=== PATIENT | male | born 1960 | race Caucasian/White ===

== ENCOUNTER → 2016-04-18 | Outpatient (CLI) | payer BC ==
[~2016-04-18] MED LIST: No Meds
--- NOTE | 2016-04-18 15:54 | DIAGNOSTIC IMAGING REPORT ---
RIGHT WRIST MIN 3 VIEWS ROUTINE CLINICAL HISTORY: Bilateral wrist pain. Hemachromatosis. COMPARISON: Right hand radiograph July 25, 2014 [place] FINDINGS: There is mild joint space narrowing of the triscaphe joint with mild joint space narrowing of the right first carpometacarpal joint and radiocarpal articulation. No fracture or suspicious lesion is identified. There is no chondrocalcinosis. No erosions are identified. IMPRESSION: 1. 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 2. No acute fracture. 3. No erosions identified. Electronically signed by: King Kent M.D. 04/18/2016 3:53 PM Dictated Date/Time: 04/18/2016 3:51 PM
--- NOTE | 2016-04-18 15:54 | DIAGNOSTIC IMAGING REPORT ---
LEFT WRIST MIN 3 VIEWS ROUTINE CLINICAL HISTORY: E83.119 [id number] Pain in both [id number] trauma. Pain. COMPARISON: None. DISCUSSION: The bones and joint spaces appear intact. There is no evidence of fracture, dislocation or bony disease. There is no evidence for soft tissue swelling. IMPRESSION: Negative study. Electronically signed by: Darshan Jones M.D. 04/18/2016 3:53 PM Dictated Date/Time: 04/18/2016 3:52 PM
== END | disposition home or self-care (01) ==
LOC: C.RAD 15:20
PROVIDERS: ATTEND Internal Medicine
DX: E83.119 Hemochromatosis, unspecified (principal); M25.531 Pain in right wrist; M25.532 Pain in left wrist

== ENCOUNTER → 2016-04-20 | Outpatient (CLI) | payer BC ==
[2016-04-24 15:37] LABS: CYCLIC CITRULLINATED PEPT IGG <16 UNITS (<20); PARVOVIRUS IgG INDEX 0.2 (<0.9); PARVOVIRUS IgM INDEX 0.2 (<0.9)
== END | disposition home or self-care (01) ==
LOC: C.LAB1850 15:45
PROVIDERS: ATTEND Internal Medicine Rheumatology
DX: E83.119 Hemochromatosis, unspecified (principal); M79.641 Pain in right hand; M25.50 Pain in unspecified joint

== ENCOUNTER → 2016-04-27 | Outpatient (CLI) | payer BC ==
--- NOTE | 2016-04-27 11:01 | DIAGNOSTIC IMAGING REPORT ---
LEFT KNEE 3 VIEWS, RIGHT KNEE 3 VIEWS CLINICAL HISTORY: E83.119 JnjduanoqnwrcwjE73.4 Inflammatory gkffbjxygcfsxT93.561 K. Bilateral knee pain. COMPARISON STUDY: None. FINDINGS: No fracture or dislocation within the right or left knee. Mild cartilage space narrowing within the medial compartment of the right knee. Suspect trace bilateral knee effusions. Soft tissues are unremarkable. Tiny osteophytes at the tibial spines and patella. Cartilage spaces within the left knee are maintained. IMPRESSION: 1. Minor arthritic change within the bilateral knees most pronounced within the medial compartment of the right knee. 2. Suspect trace bilateral knee effusions. Electronically signed by: Kavin Bush M.D. 04/27/2016 11:00 AM Dictated Date/Time: 04/27/2016 10:56 AM
--- NOTE | 2016-04-27 11:01 | DIAGNOSTIC IMAGING REPORT ---
LEFT KNEE 3 VIEWS, RIGHT KNEE 3 VIEWS CLINICAL HISTORY: E83.119 PlcphsablhqfqruY35.4 Inflammatory knbtypznipqsfD75.561 K. Bilateral knee pain. COMPARISON STUDY: None. FINDINGS: No fracture or dislocation within the right or left knee. Mild cartilage space narrowing within the medial compartment of the right knee. Suspect trace bilateral knee effusions. Soft tissues are unremarkable. Tiny osteophytes at the tibial spines and patella. Cartilage spaces within the left knee are maintained. IMPRESSION: 1. Minor arthritic change within the bilateral knees most pronounced within the medial compartment of the right knee. 2. Suspect trace bilateral knee effusions. Electronically signed by: Kavin Bush M.D. 04/27/2016 11:00 AM Dictated Date/Time: 04/27/2016 10:56 AM
--- NOTE | 2016-04-27 11:30 | DIAGNOSTIC IMAGING REPORT ---
LEFT HIP 2 VIEW CLINICAL HISTORY: Inflammatory polyarthritis. Hemochromatosis. FINDINGS: AP and frog-leg views of the left hip are obtained. No prior studies are available for comparison at the time of dictation. The skeletal structures appear well mineralized. No fracture is seen in the left hip or the imaged bony pelvis. The joint space of the hip appears preserved. No erosion is seen. Mild bony overgrowth is noted along the acetabular roof. Small enthesophytes arise from the greater trochanter. Sclerotic change is noted in the left sacroiliac joint. The overlying soft tissues are within normal limits. IMPRESSION: Minimal degenerative change as above with no acute bony abnormality identified. Electronically signed by: Alberto Chung M.D. 04/27/2016 11:29 AM Dictated Date/Time: 04/27/2016 11:27 AM
--- NOTE | 2016-04-27 11:32 | DIAGNOSTIC IMAGING REPORT ---
RIGHT HIP 2 VIEWS HISTORY: E83.119 XaptmgxydhhdbeiV48.4 Inflammatory iovssqmadbaedH99.561 K Right COMPARISON: None. FINDINGS: There is no fracture or dislocation. Soft tissues are unremarkable. Mild cartilage space narrowing with marginal osteophytes within the right hip. The visualized pelvic bones are intact. Mild thickening of the superior femoral head neck junction which can be seen in the setting of femoral acetabular impingement. IMPRESSION: 1. Mild osteoarthritis within the right hip. 2. 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 Electronically signed by: Kavin Bush M.D. 04/27/2016 11:31 AM Dictated Date/Time: 04/27/2016 11:29 AM
[2016-04-29 22:37] LABS: PARVOVIRUS IgG INDEX 0.2 (<0.9); PARVOVIRUS IgM INDEX 0.2 (<0.9)
== END | disposition home or self-care (01) ==
LOC: C.LAB1850 10:14
PROVIDERS: ATTEND Internal Medicine Rheumatology
DX: E83.119 Hemochromatosis, unspecified (principal); M06.4 Inflammatory polyarthropathy; M25.561 Pain in right knee; M25.562 Pain in left knee

== ENCOUNTER → 2016-06-29 | Outpatient (CLI) | payer BC ==
--- NOTE | 2016-06-29 14:50 | DIAGNOSTIC IMAGING REPORT ---
LUMBAR SPINE 5 VIEWS HISTORY: M06.4 Inflammatory cfykxltarxiunD36.551 Long-term current use of COMPARISON: None. FINDINGS: There is no fracture. No subluxation. The sacrum is intact. Mild facet degenerative changes throughout the lumbar spine. Mild degenerative changes within the bilateral sacroiliac joints. Disc spaces are preserved for age. Tiny endplate osteophytes within the lumbar spine. IMPRESSION: 1. No fractures or subluxation within the lumbar spine. 2. No significant disc space narrowing for age. 3. Mild facet degenerative changes seen throughout the lumbar spine. 4. Mild degenerative changes within the bilateral sacroiliac joints. Electronically signed by: Kavin Bush M.D. 06/29/2016 2:48 PM Dictated Date/Time: 06/29/2016 2:46 PM
== END | disposition home or self-care (01) ==
LOC: C.LAB1850 14:19
PROVIDERS: ATTEND Internal Medicine Rheumatology
DX: M25.551 Pain in right hip (principal); M25.552 Pain in left hip; M06.4 Inflammatory polyarthropathy; M54.40 Lumbago with sciatica, unspecified side; Z79.52 Long term (current) use of systemic steroids

== ENCOUNTER → 2016-07-05 | Outpatient (CLI) | payer BC ==
--- NOTE | 2016-07-05 13:44 | DIAGNOSTIC IMAGING REPORT ---
MRI OF THE LUMBAR SPINE WITHOUT IV CONTRAST CLINICAL HISTORY: Inflammatory polyarthritis. Low back pain and bilateral leg pain. COMPARISON STUDY: Radiographs of the lumbar spine dated 06/29/2016. TECHNIQUE: MRI of lumbar spine is performed utilizing various T1 and T2-weighted sequences in the axial and sagittal planes. IV contrast was not administered for this examination. FINDINGS: Lumbar spine: Vertebral body height and alignment are maintained throughout the lumbar spine. Tiny anterior osteophytes are seen throughout. The transverse and spinous processes appear intact. There is no evidence of spondylolysis. No destructive bony lesion or marrow replacement process is seen. No bony erosion is suspected. Intervertebral discs: There is minimal degenerative disc desiccation throughout the lumbar spine. The intervertebral discs are normal in height. Spinal cord: The partially imaged spinal cord is normal in morphology and signal intensity. The conus medullaris terminates at the level of L1. The nerve roots of the cauda equina are normal in morphology. L1-L2: Unremarkable. L2-L3: Unremarkable. L3-L4: The central canal and neural foramina are patent. There is a small facet joint effusion on the right. L4-L5: There is a small posterior disc bulge eccentric to the right. The central canal and neural foramina are widely patent. Mild facet arthropathy is of no consequence. There are small facet joint effusions. L5-S1: There is minimal posterior disc bulge. The central canal and neural foramina are patent. Facet arthropathy causes minimal left-sided neural foraminal stenosis. Sacrum: Visualized sacrum is normal in morphology and signal intensity. 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 Soft tissues: The paraspinous soft tissues are within normal limits. The partially imaged retroperitoneal structures are grossly normal but incompletely evaluated. A circumaortic left renal vein is incidentally noted. IMPRESSION: 1. There is no disc herniation, central canal stenosis, or high-grade neural foraminal narrowing seen throughout the lumbosacral spine. 2. No osseous abnormality is seen. 3. Mild spondylotic change as detailed above. Dictated: 07/05/2016 12:19 PM Transcribed: 07/05/2016 1:43 PM [place] Electronically signed by: Alberto Chung M.D. 07/05/2016 1:59 PM Dictated Date/Time: 07/05/2016 12:19 PM
--- NOTE | 2016-07-05 15:30 | DIAGNOSTIC IMAGING REPORT ---
BONE SCAN WHOLE BODY CLINICAL HISTORY: M06.4 Inflammatory fdsojjwxtmbwmE90.551 Long-term current use of COMPARISON STUDY: Conventional radiographic study of the lumbar spine knees hips hands and wrist. FINDINGS: The patient was injected with 25.5 mCi of technetium 99m MDP. Three-hour delayed whole body images were acquired. There is a focus of increased activity within the right maxilla, likely secondary to dentition. Uptake within the wrist hips and knees is felt to be normal for age. Minimal increased activity within the shoulders and cervical radicular joints is likely arthritic. IMPRESSION: Essentially normal study for age. Foci of minimal increased activity within the sternoclavicular joints and shoulders, consistent with age-related degenerative change. Electronically signed by: Jerod Vanessa M.D. 07/05/2016 3:28 PM Dictated Date/Time: 07/05/2016 3:25 PM
== END | disposition home or self-care (01) ==
LOC: C.MRI 10:55
PROVIDERS: ATTEND Internal Medicine Rheumatology
DX: M25.551 Pain in right hip (principal); M25.552 Pain in left hip; M06.4 Inflammatory polyarthropathy; M54.40 Lumbago with sciatica, unspecified side; Z79.52 Long term (current) use of systemic steroids

== ENCOUNTER → 2016-10-04 | Outpatient (CLI) | payer BC ==
[2016-10-04 14:50] LABS: BASO % 0.3 %; BASO ABS # 0.02 K/uL (0-0.2); COMPLETE YES; EOS % 1.5 %; HEMATOCRIT 43.3 % (42-52); IG% 0.6 %; LYMPH % 33.6 %; LYMPH ABS # 2.22 K/uL (1.2-3.4); MEAN CELL VOLUME 88.5 fL (80-100); MEAN CORPUSCULAR HEMOGLOBIN 30.9 pg (25-34); MEAN CORPUSCULAR HGB CONC 34.9 g/dl (32-36); MONO % 8.9 %; NEUT % 55.1 %; PLATELET COUNT 137 K/uL (130-400); RED BLOOD COUNT 4.89 M/uL (4.7-6.1)
[2016-10-04 15:04] LABS: ALT/SGPT 29 U/L (12-78); AST/SGOT 23 U/L (15-37)
[2016-10-04 15:07] LABS: ALKALINE PHOSPHATASE 42 U/L (45-117)
== END | disposition home or self-care (01) ==
LOC: C.LABBFT 13:10
PROVIDERS: ATTEND Internal Medicine Rheumatology
DX: M45.9 Ankylosing spondylitis of unspecified sites in spine (principal); Z15.89 Genetic susceptibility to other disease; Z79.899 Other long term (current) drug therapy; Z79.1 Long term (current) use of non-steroidal anti-inflammatories (NSAID)

== ENCOUNTER → 2017-02-07 | Outpatient (CLI) | payer BC ==
[2017-02-07 13:12] LABS: BASO % 0.1 %; BASO ABS # 0.01 K/uL (0-0.2); COMPLETE YES; EOS % 0.7 %; HEMATOCRIT 47.9 % (42-52); IG% 0.4 %; LYMPH % 22.5 %; LYMPH ABS # 2.17 K/uL (1.2-3.4); MEAN CORPUSCULAR HGB CONC 34.9 g/dl (32-36); MEAN PLATELET VOLUME 11.1 fL (7.4-10.4); MONO % 8.3 %; PLATELET COUNT 148 K/uL (130-400); RED BLOOD COUNT 5.57 M/uL (4.7-6.1); WHITE BLOOD COUNT 9.65 K/uL (4.8-10.8)
[2017-02-07 13:42] LABS: ALT/SGPT 31 U/L (12-78); AST/SGOT 21 U/L (15-37); CREATININE 1.15 mg/dl (0.60-1.40)
== END | disposition home or self-care (01) ==
LOC: C.LAB1850 12:16
PROVIDERS: ATTEND Internal Medicine Rheumatology
DX: E83.119 Hemochromatosis, unspecified (principal); M45.9 Ankylosing spondylitis of unspecified sites in spine; Z79.899 Other long term (current) drug therapy; Z79.1 Long term (current) use of non-steroidal anti-inflammatories (NSAID)

== ENCOUNTER → 2017-06-07 | Outpatient (CLI) | payer BC ==
[2017-06-07 12:17] LABS: BASO % 0.3 %; BASO ABS # 0.02 K/uL (0-0.2); EOS % 1.5 %; EOS ABS # 0.11 K/uL (0-0.5); HEMOGLOBIN 17.1 g/dL (14.0-18.0); IG# 0.01 K/uL (0.00-0.02); LYMPH % 35.6 %; LYMPH ABS # 2.62 K/uL (1.2-3.4); MEAN CELL VOLUME 86.1 fL (80-100); MEAN CORPUSCULAR HEMOGLOBIN 31.3 pg (25-34); MEAN CORPUSCULAR HGB CONC 36.4 g/dl (32-36); MEAN PLATELET VOLUME 10.8 fL (7.4-10.4); MONO % 10.2 %; MONO ABS # 0.75 K/uL (0.11-0.59); NEUT % 52.3 %; NEUT ABS # 3.84 K/uL (1.4-6.5); PLATELET COUNT 155 K/uL (130-400); RED CELL DISTRIBUTION WIDTH CV 12.7 % (11.5-14.5); WHITE BLOOD COUNT 7.35 K/uL (4.8-10.8)
[2017-06-07 13:48] LABS: TOTAL PROTEIN 7.4 gm/dl (6.4-8.2)
== END | disposition home or self-care (01) ==
LOC: C.LAB1850 10:49
PROVIDERS: ATTEND Internal Medicine Rheumatology
DX: M45.9 Ankylosing spondylitis of unspecified sites in spine (principal); Z79.899 Other long term (current) drug therapy

== ENCOUNTER → 2017-10-31 | Outpatient (CLI) | payer BC ==
[2017-10-31 15:30] LABS: BASO % 0.3 %; BASO ABS # 0.03 K/uL (0-0.2); EOS % 0.8 %; EOS ABS # 0.08 K/uL (0-0.5); HEMATOCRIT 47.4 % (42-52); HEMOGLOBIN 17.3 g/dL (14.0-18.0); IG# 0.02 K/uL (0.00-0.02); LYMPH % 28.2 %; LYMPH ABS # 2.78 K/uL (1.2-3.4); MEAN CELL VOLUME 86.8 fL (80-100); MEAN CORPUSCULAR HEMOGLOBIN 31.7 pg (25-34); MEAN CORPUSCULAR HGB CONC 36.5 g/dl (32-36); MEAN PLATELET VOLUME 10.5 fL (7.4-10.4); MONO % 10.4 %; MONO ABS # 1.02 K/uL (0.11-0.59); NEUT % 60.1 %; NEUT ABS # 5.92 K/uL (1.4-6.5); PLATELET COUNT 139 K/uL (130-400); RED CELL DISTRIBUTION WIDTH CV 12.6 % (11.5-14.5); RED CELL DISTRIBUTION WIDTH SD 39.9 fL (36.4-46.3); WHITE BLOOD COUNT 9.85 K/uL (4.8-10.8)
[2017-10-31 15:53] LABS: ALBUMIN 4.2 gm/dl (3.4-5.0); ALKALINE PHOSPHATASE 52 U/L (45-117); ALT/SGPT 36 U/L (12-78); AST/SGOT 27 U/L (15-37); BLOOD UREA NITROGEN 12 mg/dl (7-18); CARBON DIOXIDE 27 mmol/L (21-32); CREATININE 1.28 mg/dl (0.60-1.40); GLUCOSE 115 mg/dl (70-99); POTASSIUM 4.1 mmol/L (3.5-5.1); SODIUM 139 mmol/L (136-145); TOTAL PROTEIN 7.3 gm/dl (6.4-8.2)
== END | disposition home or self-care (01) ==
LOC: C.CCL 15:17
PROVIDERS: ATTEND Internal Medicine Hematology & Oncology
DX: E83.119 Hemochromatosis, unspecified (principal)